=== PATIENT | female | born 1955 | race African-American/Black ===

== ENCOUNTER 2024-02-11 01:37 | Inpatient (IN) | payer OTHER ==
[2024-02-11 02:36] VITALS: BMI 20.6
[2024-02-11] MEDS ORDERED: POLYETHYLENE GLYCOL (HEALTHYLAX) 3350 17 GM PACKET PO PRN (03:30)
[2024-02-11] MEDS ORDERED: IBUPROFEN 400 MG TABLET (FP) PO PRN (03:30)
[2024-02-11] MEDS ORDERED: BENZOCAINE/MENTHOL (CHLORASEPTIC ) LOZENGE MM PRN (03:30)
[2024-02-11] MEDS ORDERED: LOPERAMIDE HCL 2 MG CAPSULE PO PRN (03:30)
[2024-02-11] MEDS ORDERED: BENZONATATE 200 MG CAPSULE PO PRN (03:30)
[2024-02-11] MEDS ORDERED: ONDANSETRON *ODT* 4 MG TABLET SL PRN (03:30)
[2024-02-11] MEDS ORDERED: IBUPROFEN 600 MG TABLET (FP) PO PRN (03:30)
[2024-02-11] MEDS ORDERED: MAG HYDROX/AL HYDROX/SIMETH 30 ML UNIT-DOSE CUP PO PRN (03:30)
[2024-02-11] MEDS ORDERED: NALOXONE HCL 0.4 MG/ML VIAL IM PRN (03:30)
[2024-02-11] MEDS ORDERED: NICOTINE POLACRILEX 2 MG GUM BUC PRN (03:30)
[2024-02-11] MEDS ORDERED: ACETAMINOPHEN 325 MG TABLET (FP) PO PRN (03:30)
[2024-02-11] MEDS ORDERED: guaiFENesin 600 MG TABLET.ER (FP) PO PRN (03:30)
[2024-02-11] MEDS ORDERED: BISMUTH SUBSALICYLATE 524 MG/30 ML PO PRN (03:30)
[2024-02-11] MEDS ORDERED: MAGNESIUM HYDROX 2400MG/30ML ORAL SUSPENSION 30 ML CUP PO PRN (03:30)
[2024-02-11] MEDS ORDERED: DICYCLOMINE HCL 10 MG CAPSULE PO PRN (03:30)
[2024-02-11] MEDS ORDERED: NALOXONE (NARCAN) HCL 4 MG/0.1 ML SPRAY NS PRN (03:30)
[2024-02-11] MEDS: PRENATAL VITAMINS W/ FOLIC ACID TABLET (FP) PO SCH (10:03)
[2024-02-11] MEDS: NICOTINE 14 MG/24 HOURS TOPICAL PATCH TD SCH (10:03)
[2024-02-11] MEDS: ALBUTEROL SO4 HFA INHALER IH PRN (19:38)
[2024-02-11] MEDS: METOPROLOL TARTRATE 25 MG TABLET (FP) PO ONE (20:56)
[2024-02-11] MEDS: MELATONIN 5 MG TABLETS PO SCH (21:01)
[2024-02-11] MEDS: THIAMINE 100 MG TABLET PO SCH (21:04)
[2024-02-12 14:14] LABS: HEMATOCRIT 43.2 % (32.4-45.2); HEMOGLOBIN 13.8 GM/dL (10.7-15.3); MCH 26.1 pg (25.7-33.7); MEAN CELL VOLUME 81.5 fl (80-96); MEAN PLT VOLUME 10.1 fl (7.5-11.1); PLATELET COUNT 165 10^3/uL (134-434); RBC 5.29 M/mm3 (3.60-5.2); RDW 16.6 % (11.6-15.6); WHITE BLOOD COUNT 6.3 K/mm3 (4.0-10.0)
[2024-02-12 14:18] LABS: POTASSIUM 3.9 mmol/L (3.5-5.1)
[2024-02-12 14:23] LABS: CALCIUM 8.8 mg/dL (8.5-10.1)
[2024-02-12 14:24] LABS: BLOOD UREA NITROGEN 11.1 mg/dL (7-18)
[2024-02-12 14:27] LABS: CREATININE 0.7 mg/dL (0.55-1.3)
[2024-02-12 14:28] LABS: BILIRUBIN,TOTAL 0.6 mg/dL (0.2-1); TOT PROT 5.9 g/dl (6.4-8.2)
[2024-02-13 09:07] VITALS: TEMP 97.1
[2024-02-13 12:55] VITALS: BP 106/71; PULSE 78; RESP 17
== END 2024-02-13 14:09 | disposition home or self-care (01) | DRG 897 ==
LOC: YASAS 01:37 → Y3N 03:52
PROVIDERS: ADMIT Allergy & Immunology; ATTEND Surgery
PROC: HZ2ZZZZ Detoxification Services for Substance Abuse Treatment (ICD-10-PCS; principal; 2024-02-11)
DX: F10.20 Alcohol dependence, uncomplicated (principal); Z59.00 Homelessness unspecified; F14.10 Cocaine abuse, uncomplicated; F17.210 Nicotine dependence, cigarettes, uncomplicated; F31.9 Bipolar disorder, unspecified; F19.24 Other psychoactive substance dependence with psychoactive substance-induced mood disorder; F43.10 Post-traumatic stress disorder, unspecified; E78.5 Hyperlipidemia, unspecified; I10 Essential (primary) hypertension; J44.9 Chronic obstructive pulmonary disease, unspecified; J45.20 Mild intermittent asthma, uncomplicated
CPT/HCPCS: 36415; 71046-TC-FY; 80053; 80305; 80307; 85027; 86593; 86780; 93005; 93010